=== PATIENT | male | born 1955 | race Caucasian/White ===

== ENCOUNTER 2023-10-04 02:32 | Emergency (ER) | payer OTHER ==
[2023-10-04] MEDS ORDERED: ONDANSETRON 4 MG/2 ML VIAL ONE (03:12)
[2023-10-04] MEDS ORDERED: KETOROLAC 30 MG/ML INJ ONE (03:13)
[2023-10-04] MEDS ORDERED: MORPHINE 4 MG/ML SYR ONE (03:13)
[2023-10-04] MEDS ORDERED: NA CHLORIDE 0.9% 1,000 ML ONE (03:13)
[2023-10-04 03:41] LABS: Specific Gravity 1.027 (1.005-1.030); Sqamous Epithelial None Seen /HPF (None Seen); Urine Bacteria None Seen /HPF (<20); Urine Bilirubin NEGATIVE (Negative); Urine Blood 2+ (Negative); Urine Clarity Clear (Clear); Urine Color Light-Yellow (Yellow); Urine Culture Reflex Order NOT NEEDED; Urine Glucose NEGATIVE (Negative); Urine Ketones NEGATIVE (Negative); Urine Microscopic Reflex YN ORDER UMIC; Urine Mucus Slight /HPF (None Seen); Urine Nitrite NEGATIVE (Negative); Urine Protein NEGATIVE (Negative); Urine RBC >50 /HPF (None Seen); Urine Urobilinogen Normal (Normal); Urine WBC <5 /HPF (<5); Urine pH 5.5 (5.0-7.0)
[2023-10-04 03:44] LABS: Absolute Eosinophils 0.2 K/uL (0-0.5); Absolute Lymphocytes (CBC) 1.9 K/uL (0.7-4.9); Absolute Monocytes 0.6 K/uL (0.1-1.3); Absolute Neutrophil 3.3 K/uL (1.8-8.0); Basophils % 0.4 % (0-1.3); Eosinophils % 3.2 % (0-4.4); Hematocrit 43.6 % (39.6-49.0); Hemoglobin 14.7 g/dL (13.6-17.9); MCH 31.2 pg (27.0-35.0); MCHC 33.8 g/dL (32.0-36.0); MCV 92.5 fL (80-100); MPV 7.5 fL (7.6-11.3); Monocytes % 9.4 % (3.3-12.3); Nucleated Red Blood Cells % 0.1 % (0-0); Platelets 244 thou/uL (152-406); RBC Red Blood Cell Count 4.71 M/uL (4.33-5.43)
[2023-10-04 04:00] LABS: Albumin 3.6 g/dL (3.4-5.0); Albumin/Globulin Ratio 1.1 (1.1-1.8); Anion Gap 6.4 mEq/L (5.0-15.0); Bilirubin Total 0.9 mg/dL (0.2-1.0); Globulin 3.3 g/dL (2.3-3.5); Potassium 4.4 mEq/L (3.5-5.1); Protein, Total 6.9 g/dL (6.4-8.2)
[2023-10-04] MEDS ORDERED: TAMSULOSIN 0.4 MG SR CAP ONE ×2 (06:42→06:50)
--- NOTE | 2023-10-04 06:43 | EDPHYS ---
Physician Documentation [facility] Name: Chris Carrizales Age: 68 yrs Sex: Male : 1955 Arrival Date: 10/04/2023 Time: 02:32 Bed 13 Private MD: ED Physician Driss Phelps HPI: 10/03 03:08 This 68 yrs old Male presents to ER via Ambulatory with complaints of Urinary sp4 Retention, Pain. 06:46 68-year-old male comes in with acute onset of bladder pain and reported urinary sp4 retention.. Patient reports pain was acute and located in the area of urinary bladder also feeling of urinary bladder fullness. . Historical: - Allergies: 02:51 No Known Allergies; jb4 - Home Meds: 02:51 rosuvastatin oral [Active]; Omeprazole Oral [Active]; jb4 - PMHx: 02:51 high cholesterol; acid reflux; jb4 - PSHx: 02:51 None; esophogeal; jb4 - Immunization history:: Adult Immunizations up to date. - Infectious Disease History:: Denies. - Social history:: Smoking status: Patient denies any tobacco usage or history of. - Family history:: not pertinent. ROS: 06:46 Constitutional: Negative for fever, chills, and weight loss, positive pelvic pain, sp4 positive urinary bladder fullness 06:46 All other systems are negative, Exam: 06:46 Constitutional: This is a well developed, well nourished patient who is awake, alert, sp4 and in no acute distress. Head/Face: Normocephalic, atraumatic. Eyes: Pupils equal round and reactive to light, extra-ocular motions intact. Lids and lashes normal. Conjunctiva and sclera are not injected. Cornea within normal limits. Periorbital areas with no swelling, redness, or edema. ENT: Nares patent. No nasal discharge, no septal abnormalities noted. Tympanic membranes are normal and external auditory canals are clear. Oropharynx with no redness, swelling, or masses, exudates, or evidence of obstruction, uvula midline. Mucous membranes moist. Neck: Trachea midline, no thyromegaly or masses palpated, and no cervical lymphadenopathy. Supple, full range of motion without nuchal rigidity, or vertebral point tenderness. Chest/axilla: Normal chest wall appearance and motion. Nontender with no deformity. No lesions are appreciated. Cardiovascular: Regular rate and rhythm with a normal S1 and S2. No gallops, murmurs, or rubs. Normal PMI, no JVD. No pulse deficits. Respiratory: Lungs have equal breath sounds bilaterally, clear to auscultation and percussion. No rales, rhonchi or wheezes noted. No increased work of breathing, no retractions or nasal flaring. Abdomen/GI: Soft, with normal bowel sounds. No distension or tympany. No guarding or rebound. No evidence of tenderness throughout. Back: No spinal tenderness. No costovertebral tenderness. Skin: Warm, dry with normal turgor. Normal color with no rashes, no lesions, and no evidence of cellulitis. MS/ Extremity: Pulses equal, no cyanosis. Neurovascular intact. Full, normal range of motion. Neuro: Awake and alert, GCS 15, oriented to person, place, time, and situation. Cranial nerves II-XII grossly intact. Motor strength 5/5 in all extremities. Sensory grossly intact. Psych: Awake, alert, with orientation to person, place and time. Behavior, mood, and affect are within normal limits Vital Signs: 02:49 BP 151 / 94; Pulse 66; Resp 16; Temp 97.6(O); Pulse Ox 100% on R/A; Weight 113.4 kg jb4 (R); Height 6 ft. 1 in. (R); Pain 7/10; 03:00 BP 172 / 99; Pulse 74; Resp 16; Pulse Ox 100% ; jj7 04:00 BP 136 / 81; Pulse 62; Resp 18; Pulse Ox 98% ; jj7 05:15 BP 126 / 72; Pulse 65; Resp 18; Pulse Ox 97% ; jj7 06:00 BP 128 / 69; Pulse 62; Resp 19; Temp 97.9; Pulse Ox 99% ; jj7 06:59 BP 131 / 67; Pulse 60; Resp 17; Pulse Ox 98% ; jj7 02:49 Body Mass Index 32.98 (113.40 kg, 185.42 cm) [facility] 02:49 Pain Scale: Adult jb4 [place] Coma Score: 06:46 Eye Response: spontaneous(4). Motor Response: obeys commands(6). Verbal Response: sp4 oriented(5). Total: 15. MDM: 03:08 Patient medically screened. sp4 06:34 ED course: EXAM DESCRIPTION: Abdomen Pelvis W Contrast CLINICAL HISTORY: abd pain, sp4 urine retention COMPARISON: None Available. TECHNIQUE: CT of the abdomen and pelvis performed following IV administration of iodinated contrast. This exam was performed according to our departmental dose-optimization program, which includes automated exposure control, adjustment of the mA and/or kV according to patient size and/or use of iterative reconstruction technique. FINDINGS: Lung Bases: Minimal dependent atelectasis. Bones: Mild endplate spondylosis. Abdomen: Liver: Multiple hepatic cysts. Gallbladder: No calcified gallstones. Spleen, Pancreas, and Adrenal Glands: The spleen, pancreas, and adrenal glands are unremarkable. Kidneys: Bilateral peripelvic cysts. There is a 0.2 cm obstructing calculus in the left UVJ producing mild left hydroureter and hydronephrosis. Nonobstructing left nephrolithiasis. Enhancing mass arising from the superior pole of the left kidney measuring 2.8 cm. Vasculature: There aortoiliac atherosclerosis. Atherosclerosis. IVC is unremarkable. The portal vein is patent. The proximal visceral and renal arteries are patent. Stomach: The stomach and duodenum have normal course. Other: No free intraperitoneal air. No free fluid or lymphadenopathy. Small fat-containing umbilical hernia. Pelvis: Bladder: Purvis catheter in the urinary bladder. Wall thickening of the urinary bladder with perivesical inflammatory change. Bowel: No dilated loops of large or small bowel. Appendix: Normal appendix. Pelvis:Enlarged prostate. IMPRESSION: 1. There is a 0.2 cm obstructing calculus in the left UVJ producing mild left hydroureter and hydronephrosis. 2. Nonobstructing left nephrolithiasis. 3. Enhancing mass arising from the superior pole of the left kidney measuring 2.8 cm. This is concerning for renal cell carcinoma. Follow-up multiphase renal protocol MRI or CT recommended for more complete characterization. 4. Wall thickening of the urinary bladder with perivesical inflammatory change. These findings could be seen with cystitis. 5. Enlarged prostate. . 06:49 Differential Diagnosis altered mental status, sepsis, flu. Data reviewed: vital signs, sp4 nurses notes. Data reviewed: lab test result(s), radiologic studies, CT scan. Consideration of Admission/Observation Escalation of care including admission/observation considered. ED course: Patient has no evidence of bladder outlet obstruction.. Is 0.2 cm obstructing calculus in the left UVJ producing mild left hydroureter. Patient was prescribed Flomax for this.. Urinary catheter was removed. There is also incidental finding of 2.8 cm superior pole left kidney mass. This 1 is concerning for renal cell carcinoma. Patient was referred to Dr. Wilson with oncology and Dr. Bailey with urology for evaluation of the above-mentioned mass. Patient advised to see oncologist and urologist in the next 7 to 10 days. . 10/03 03:08 Order name: CBC with Diff; Complete Time: 05:23 sp4 10/03 03:08 Order name: CMP; Complete Time: 05:23 sp4 10/03 03:08 Order name: Lipase; Complete Time: 05:23 sp4 10/03 03:08 Order name: Urinalysis w/ reflexes; Complete Time: 05:23 sp4 10/03 03:08 Order name: CT Abd/Pelvis - IV Contrast Only sp4 10/03 03:01 Order name: Purvis; Complete Time: 03:03 sp4 10/03 03:08 Order name: IV Saline Lock; Complete Time: 03:25 sp4 10/03 03:08 Order name: Labs collected and sent; Complete Time: 03:25 sp4 Administered Medications: 03:19 Drug: TORadol - Ketorolac IVP 15 mg IVP once Route: IVP; Site: right antecubital; jj7 04:33 Follow up: Response: Marked relief of symptoms; Pain is decreased jj7 03:19 Drug: Ondansetron IVP 4 mg IVP once; over 2 minutes Route: IVP; Site: right antecubital;jj7 04:33 Follow up: Response: No adverse reaction jj7 03:19 Drug: morphine IVP or IV 4 mg IVP once over 4 mins Route: IVP; Infused Over: 4 mins; jj7 Site: right antecubital; 04:33 Follow up: Response: Marked relief of symptoms; Pain is decreased jj7 03:26 Drug: NS 0.9% IV 1000 ml IV at 125 ml/hr continuous Route: IV; Rate: 125 ml/hr; Site: j right antecubital; 06:58 Follow up: IV Status: Completed infusion; IV Intake: 400ml jj7 06:58 Drug: Flomax PO 0.4 mg PO once Route: PO; jj7 07:01 Follow up: Response: No adverse reaction jj7 Disposition Summary: 10/04/23 06:43 Discharge Ordered Problem: new sp4 Symptoms: have improved sp4 Condition: Stable sp4 Diagnosis - Ureteral calculus, left ureteral obstructing calculus, acute urinary bladder sp4 pain. Left renal mass Followup: sp4 - With: Eduard Bailey MD - When: 7 - 10 days - Reason: Recheck today's complaints Followup: sp4 - With: Cierra Kiran MD - When: 7 - 10 days - Reason: Recheck today's complaints Discharge Instructions: - Discharge Summary Sheet sp4 - Renal Mass sp4 Forms: - Patient Portal Instructions sp4 Prescriptions: - Flomax 0.4 mg Oral capsule - take 1 capsule ORAL route daily for 30 days; 30 capsule; Refills: 0, Product sp4 Selection Permitted - Ibuprofen 800 mg Oral Tablet - take 1 tablet ORAL route every 8 hours As needed take with food; 30 tablet; sp4 Refills: 0, Product Selection Permitted - Tramadol 50 mg Oral tablet - take 1 tablet ORAL route every 8 hours as needed; 20 tablet; Refills: 0, sp4 Product Selection Permitted Signatures: Dispatcher [employer] Julien Beltre RN RN jb4 Luanne Sadler RN RN jj7 Driss Phelps MD MD sp4 Corrections: (The following items were deleted from the chart) 02:53 02:51 PMHx: None; jf jbVanesa
--- NOTE | 2023-10-04 06:43 | ER ---
Nurse's Notes [facility] Name: Chris Carrizales Age: 68 yrs Sex: Male : 1955 Arrival Date: 10/04/2023 Time: 02:32 Bed 13 Private MD: Diagnosis: Ureteral calculus, left ureteral obstructing calculus, acute urinary bladder pain. Left renal mass Presentation: 10/03 02:49 Chief complaint: Patient states: I have not been able to urinate since 4pm yesterday. jb4 Coronavirus screen: At this time, the client does not indicate any symptoms associated with coronavirus-19. Ebola Screen: No symptoms or risks identified at this time. Initial Sepsis Screen: Does the patient meet any 2 criteria? No. Patient's initial sepsis screen is negative. Does the patient have a suspected source of infection? No. Patient's initial sepsis screen is negative. Risk Assessment: Do you want to hurt yourself or someone else? Patient reports no desire to harm self or others. Onset of symptoms was October 04, 2023. Transition of care: patient was not received from another setting of care. 02:49 Method Of Arrival: Ambulatory jb4 02:49 Acuity: SULMA 3 jb4 Triage Assessment: 02:51 General: Appears in no apparent distress. uncomfortable, Behavior is calm, cooperative, jb4 appropriate for age. Pain: Complains of pain in suprapubic area Pain does not radiate. Pain currently is 7 out of 10 on a pain scale. Neuro: Level of Consciousness is awake, alert, obeys commands, Oriented to person, place, time, situation. Cardiovascular: Patient's skin is warm and dry. Respiratory: Airway is patent Respiratory effort is even, unlabored, Respiratory pattern is regular, symmetrical. : Reports inability to void, since 1600 10/03/23. Derm: Skin is intact, Skin is pink, warm \T\ dry. Musculoskeletal: Circulation, motion, and sensation intact. Range of motion: intact in all extremities. Historical: - Allergies: 02:51 No Known Allergies; jb4 - Home Meds: 02:51 rosuvastatin oral [Active]; Omeprazole Oral [Active]; jb4 - PMHx: 02:51 high cholesterol; acid reflux; jb4 - PSHx: 02:51 None; esophogeal; jb4 - Immunization history:: Adult Immunizations up to date. - Infectious Disease History:: Denies. - Social history:: Smoking status: Patient denies any tobacco usage or history of. - Family history:: not pertinent. Screenin:55 [facility] ED Fall Risk Assessment (Adult) History of falling in the last 3 months, jj7 including since admission No falls in past 3 months (0 pts) Confusion or Disorientation No (0 pts) Intoxicated or Sedated No (0 pts) Impaired Gait No (0 pts) Mobility Assist Device Used No (0 pt) Altered Elimination No (0 pt) Score/Fall Risk Level 0 - 2 = Low Risk Oriented to surroundings, Maintained a safe environment, Educated pt \T\ family on fall prevention, incl call for assistance when getting out of bed. Abuse screen: Denies threats or abuse. Nutritional screening: No deficits noted. Tuberculosis screening: No symptoms or risk factors identified. Assessment: 02:55 Reassessment: Patient states symptoms have not improved. Reassessment: 100 ML OF URINE jj7 OUT FROM KISER. PT STATES HE ISN'T FEELING ANY RELIEF. KISER NOT DRAINING. MD CABRERA INFORMED. BEDSIDE US PERFORMED. : Kiser in place to gravity drainage Last void at 16:00. Reports inability to void, since 4P. Vital Signs: 02:49 BP 151 / 94; Pulse 66; Resp 16; Temp 97.6(O); Pulse Ox 100% on R/A; Weight 113.4 kg jb4 (R); Height 6 ft. 1 in. (R); Pain 7/10; 03:00 BP 172 / 99; Pulse 74; Resp 16; Pulse Ox 100% ; jj7 04:00 BP 136 / 81; Pulse 62; Resp 18; Pulse Ox 98% ; jj7 05:15 BP 126 / 72; Pulse 65; Resp 18; Pulse Ox 97% ; jj7 06:00 BP 128 / 69; Pulse 62; Resp 19; Temp 97.9; Pulse Ox 99% ; jj7 06:59 BP 131 / 67; Pulse 60; Resp 17; Pulse Ox 98% ; jj7 02:49 Body Mass Index 32.98 (113.40 kg, 185.42 cm) [facility] 02:49 Pain Scale: Adult jb4 [place] Coma Score: 06:46 Eye Response: spontaneous(4). Motor Response: obeys commands(6). Verbal Response: sp4 oriented(5). Total: 15. ED Course: 02:36 Patient arrived in ED. gm2 02:45 Luanne Sadler, RN is Primary Nurse. jj7 02:51 Triage completed. jb4 02:51 Arm band placed on right wrist. jb4 02:55 Patient has correct armband on for positive identification. Placed in gown. Bed in low jj7 position. Call light in reach. Side rails up X 1. Provided Education on: CALL LOPEZ USE. 02:55 Client placed on continuous cardiac and pulse oximetry monitoring. NIBP monitoring jj7 applied. Warm blanket given. 03:01 Driss Phelps MD is Attending Physician. sp4 03:03 Kiser cath inserted, using sterile technique, returned Patient tolerated well. oe 03:25 CBC with Diff Sent. jj7 03:25 CMP Sent. jj7 03:25 Lipase Sent. jj7 03:25 Urinalysis w/ reflexes Sent. jj7 04:39 CT Abd/Pelvis - IV Contrast Only In Process Unspecified. EDMS 06:41 Eduard Bailey MD is Referral Physician. sp4 06:41 Cierra Kiran MD is Referral Physician. sp4 07:00 No provider procedures requiring assistance completed. IV discontinued, intact, jj7 bleeding controlled, No redness/swelling at site. Pressure dressing applied. Administered Medications: 03:19 Drug: TORadol - Ketorolac IVP 15 mg IVP once Route: IVP; Site: right antecubital; jj7 04:33 Follow up: Response: Marked relief of symptoms; Pain is decreased jj7 03:19 Drug: Ondansetron IVP 4 mg IVP once; over 2 minutes Route: IVP; Site: right antecubital;jj7 04:33 Follow up: Response: No adverse reaction jj7 03:19 Drug: morphine IVP or IV 4 mg IVP once over 4 mins Route: IVP; Infused Over: 4 mins; jj7 Site: right antecubital; 04:33 Follow up: Response: Marked relief of symptoms; Pain is decreased jj7 03:26 Drug: NS 0.9% IV 1000 ml IV at 125 ml/hr continuous Route: IV; Rate: 125 ml/hr; Site: [facility] right antecubital; 06:58 Follow up: IV Status: Completed infusion; IV Intake: 400ml jj7 :58 Drug: Flomax PO 0.4 mg PO once Route: PO; jj7 07:01 Follow up: Response: No adverse reaction jj7 Medication: 03:10 VIS not applicable for this client. jj7 Intake: :58 IV: 400ml; Total: 400ml. jj7 Outcome: 06:43 Discharge ordered by . jing 07:00 Discharged to home ambulatory, jj7 07:00 Condition: improved 07:00 Discharge instructions given to patient, Instructed on discharge instructions, follow up and referral plans. medication usage, Demonstrated understanding of instructions, follow-up care, medications, Prescriptions given X 3, 07:01 Patient left the ED. jj7 Signatures: Dispatcher [employer] ED[facility] Julien Drummond RN RN jb4 Ramón Parikh Juwairiyah, RN RN jjDriss Washington MD MD sp4 Anjana Raymond gm2 Corrections: (The following items were deleted from the chart) 02:53 02:51 PMHx: None; jf jb4
[2023-10-04 13:13] VITALS: BP 131/67; TEMP 97.9; O2SAT 98
--- NOTE | 2023-10-07 20:45 | RAD REPORT ---
EXAM DESCRIPTION: CT - Abdomen Pelvis W Contrast - 10/04/2023 6:41 am CLINICAL HISTORY: Abd pain, urine retention COMPARISON: None Available. TECHNIQUE: CT of the abdomen and pelvis performed following IV administration of iodinated contras t. This exam was performed according to our departmental dose-optimization program, which includes au tomated exposure control, adjustment of the mA and/or kV according to patient size and/or use of iter ative reconstruction technique. FINDINGS: Lung Bases: Minimal dependent atelectasis. Bones: Mild endplate spondylosis. Abdomen: Liver: Multiple hepatic cysts. Gallbladder: No calcified gallstones. Spleen, Pancreas, and Adrenal Glands: The spleen, pancreas, and adrenal glands are unremarkable. Kidneys: Bilateral peripelvic cysts. There is a 0.2 cm obstructing calculus in the left UVJ produci ng mild left hydroureter and hydronephrosis. Nonobstructing left nephrolithiasis. Enhancing mass pablo ing from the superior pole of the left kidney measuring 2.8 cm. Vasculature: There aortoiliac atherosclerosis. Atherosclerosis. IVC is unremarkable. The portal vei n is patent. The proximal visceral and renal arteries are patent. Stomach: The stomach and duodenum have normal course. Other: No free intraperitoneal air. No free fluid or lymphadenopathy. Small fat-containing umbili ellen hernia. Pelvis: Bladder: Purvis catheter in the urinary bladder. Wall thickening of the urinary bladder with perives ical inflammatory change. Bowel: No dilated loops of large or small bowel. Appendix: Normal appendix. Pelvis: Enlarged prostate. IMPRESSION: 1. There is a 0.2 cm obstructing calculus in the left UVJ producing mild left hydroure ter and hydronephrosis. 2. Nonobstructing left nephrolithiasis. 3. Enhancing mass arising from the superior pole of the left kidney measuring 2.8 cm. This is eva rning for renal cell carcinoma. Follow-up multiphase renal protocol MRI or CT recommended for more co mplete characterization. 4. Wall thickening of the urinary bladder with perivesical inflammatory change. These findings coul d be seen with cystitis. 5. Enlarged prostate. Electronically signed by: Og Gaytan DO 10/04/2023 06:25 AM CDT M Due to temporary technical issues with the PACS/Fluency reporting system, reports are being signed by the in house radiologists without review as a courtesy to insure prompt reporting. The interpreting radiologist is fully responsible for the content of the report.
== END 2023-10-04 07:01 | disposition home or self-care (01) ==
LOC: ER 02:32
DX: N20.1 Calculus of ureter (principal); N28.9 Disorder of kidney and ureter, unspecified; R39.89 Other symptoms and signs involving the genitourinary system
CPT/HCPCS: 96361; 85025; 81001; 36415; 83690; 80053; 74177; 51702; 96375; 96374; 99285; Q9967; J2405; J7030